=== PATIENT | female | born 1965 | race American Indian/Alaskan Native ===

== ENCOUNTER 2017-11-15 13:45 | Observation (INO) | payer BC ==
[2017-11-15] MEDS ORDERED: Pantoprazole 40 MG in Sodium Chloride 0.9% 100 ML IV STA (14:15)
[2017-11-15] MEDS ORDERED: Sodium Chloride 0.9% 500 ML IV ONE (14:16)
--- NOTE | 2017-11-15 14:20 | ED PDOC ---
Arrival/HPI - General Chief Complaint: Abdominal Pain Time Seen by Provider: 11/15/17 13:59 Historian: Patient, Parent - History of Present Illness Time/Duration: Other (yesterday) Symptom Onset: Gradual Symptom Course: Worsening Quality: Aching Severity Level: Severe Activities at Onset: Rest Associated Symptoms (Text): 11/15/17 14:17 Patient complains of generalized abdominal pain with radiation into her back along with nausea vomiting and constipation since yesterday. No genitourinary symptoms. Patient had a similar episode approximately 15 years ago. No fever or chills. No chest pain palpitations or dyspnea. No injury or trauma. Past Medical History - Infectious Disease Hx of Infectious Diseases: None - Reproductive Menopause: No - Cardiac Hx Cardiac Disorders: Yes Hx Hypertension: Yes - Endocrine/Metabolic Hx Diabetes Mellitus Type 2: Yes Hx Hypothyroidism: Yes - Hematological/Oncological Other/Comment: breast ca - Integumentary Hx Dermatological Disorder: No - Psychiatric Hx Substance Use: No - Surgical History Other/Comment: rt breadt lumpectomy - Anesthesia Hx Anesthesia: Yes Hx Anesthesia Reactions: No Family/Social History - Physician Review Nursing Documentation Reviewed: Yes Family/Social History: Unknown Family HX Smoking Status: Heavy Smoker > 10 Cigarettes Daily Hx Alcohol Use: Yes Frequency of alcohol use: Socially Hx Substance Use: No Allergies/Home Meds Allergies/Adverse Reactions: Allergies acetaminophen [From Percocet] Allergy (Verified 11/15/17 14:15) RASH banana Allergy (Verified 11/15/17 14:15) RASH oxycodone [From Percocet] Allergy (Verified 11/15/17 14:15) RASH tomato Allergy (Verified 11/15/17 14:15) RASH Review of Systems - Physician Review All systems were reviewed & negative as marked: Yes - Review of Systems Constitutional: absent: Fatigue, Fevers Respiratory: absent: SOB, Cough, Sputum, Wheezing Cardiovascular: absent: Chest Pain, Palpitations, Syncope Gastrointestinal: Abdominal Pain, Constipation, Nausea, Vomiting. absent: Diarrhea, Anorexia Genitourinary Female: absent: Dysuria, Frequency, Hematuria Neurological: absent: Headache, Dizziness, Focal Weakness Physical Exam Vital Signs Temp Pulse Resp BP Pulse Ox 11/15/17 16:23 180/98 H 11/15/17 15:35 179/104 H 11/15/17 15:14 78 18 179/104 H 98 11/15/17 14:08 98.7 F 95 H 18 185/109 H 99 Temperature: Afebrile Blood Pressure: Hypertensive Pulse: Regular Respiratory Rate: Normal Appearance: Positive for: Well-Appearing, Non-Toxic, Uncomfortable, Other (obese ) Pain Distress: Moderate Mental Status: Positive for: Alert and Oriented X 3 - Systems Exam Head: Present: Atraumatic, Normocephalic Pupils: Present: PERRL Extroacular Muscles: Present: EOMI Conjunctiva: Present: Normal Mouth: Present: Moist Mucous Membranes Pharnyx: No: ERYTHEMA, EXUDATE, TONSILS ENLARGED Neck: Present: Normal Range of Motion Respiratory/Chest: Present: Clear to Auscultation, Good Air Exchange, Decreased Breath Sounds. No: Respiratory Distress, Accessory Muscle Use Cardiovascular: Present: Regular Rate and Rhythm, Normal S1, S2. No: Murmurs Abdomen: Present: Tenderness (generalized abdominal tenderness with no guarding or rebound, surgical scars), Normal Bowel Sounds, Scars. No: Distention, Peritoneal Signs, Rebound, Guarding Back: Present: Normal Inspection. No: CVA Tenderness, Midline Tenderness, Paraspinal Tenderness Upper Extremity: Present: Normal Inspection. No: Cyanosis, Edema Lower Extremity: Present: Normal Inspection. No: Edema Neurological: Present: GCS=15, CN II-XII Intact, Speech Normal, Motor Func Grossly Intact Skin: Present: Warm, Dry, Normal Color. No: Rashes Psychiatric: Present: Alert, Oriented x 3, Normal Insight, Normal Concentration Medical Decision Making ED Course and Treatment: 11/15/17 14:10 Impression: 52 year old female presents complaining of abdominal pain radiating to her back associated with nausea, vomiting, and constipation since yesterday. Plan: -- CT Abd & pelvis w/o PO or IV Contrast -- EKG -- Labs -- Chest X-ray -- Protonix Inj, IV Fluids, Toradol, Zofran Inj -- Urinalysis -- Reassess and disposition Progress Notes: 11/15/17 15:30 EKG shows normal sinus rhythm rate approximately 80 with LVH and nonspecific T waves and no acute ST or T-wave changes 11/15/17 16:14 Nausea has improved, but her pain is no better. Morphine ordered. - Lab Interpretations Lab Results: 11/15/17 15:14 11/15/17 15:49 Lab Results 11/15/17 15:54: Urine Color Yellow, Urine Appearance Clear, Urine pH 6.0, Ur Specific [place] 1.010, Urine Protein Negative, Urine Glucose (UA) Negative, Urine Ketones Negative, Urine Blood Negative, Urine Nitrate Negative, Urine Bilirubin Negative, Urine Urobilinogen 0.2, Ur Leukocyte Esterase Negative 11/15/17 15:49: Sodium 141, Potassium 4.2, Chloride 107, Carbon Dioxide 26, Anion Gap 11, BUN 8, Creatinine 0.6 L, Est GFR ( Amer) > 60, Est GFR (Non -Af Amer) > 60, Random Glucose 112 H, Calcium 9.6, Total Bilirubin 0.4, AST 21, ALT 19, Alkaline Phosphatase 99, Lactate Dehydrogenase 505, Total Creatine Kinase 128, Troponin I < 0.01, Total Protein 7.2, Albumin 4.1, Globulin 3.1, Albumin/Globulin Ratio 1.3, Amylase 103, Lipase 100 11/15/17 15:14: PT 11.5, INR 1.01, APTT 35.3 11/15/17 15:14: WBC 11.9 H, RBC 4.61, Hgb 13.5, Hct 41.3, MCV 89.6, MCH 29.3, MCHC 32.7, RDW 14.4, Plt Count 312, MPV 10.6, Gran % 63.2, Lymph % (Auto) 30.1, [place] % (Auto) 6.0, Eos % (Auto) 0.5 L, Baso % (Auto) 0.2, Gran # 7.52 H, Lymph # (Auto) 3.6 H, [place] # (Auto) 0.7 H, Eos # (Auto) 0.1, Baso # (Auto) 0.02 I have reviewed the lab results: Yes - RAD Interpretation Radiology Orders: 11/15/17 14:15 ABD & PELVIS W/O PO OR IV CONT [CT] Stat CHEST ONE VIEW [RAD] Stat CT scan of the abdomen and pelvis is read by the radiologist shows no acute findings. Chest one view as read by the radiologist shows no acute findings. Biomedical Equipment Specialist: Radiologist - EKG Interpretation Interpreted by ED Physician: Yes Type: 12 lead EKG - Medication Orders Current Medication Orders: Discontinued Medications Enalaprilat (Vasotec Iv) 2.5 mg IVP STAT STA Stop: 11/15/17 15:28 Last Admin: 11/15/17 15:35 Dose: 2.5 mg MAR Blood Pressure Document 11/15/17 15:35 LA (Rec: 11/15/17 15:35 LA [id number]) Blood Pressure Blood Pressure (100/60-150/90 mm Hg) 179/104 IVP Administration Document 11/15/17 15:35 LA (Rec: 11/15/17 15:35 LA [id number]) Charges for Administration # of IVP Administrations 1 Sodium Chloride (Sodium Chloride 0.9%) 500 mls @ 500 mls/hr IV ONCE ONE Stop: 11/15/17 15:15 Last Admin: 11/15/17 14:56 Dose: 500 mls/hr eMAR Start Stop Document 11/15/17 14:56 LA (Rec: 11/15/17 14:57 LA [id number]) Intravenous Solution Start Date 11/15/17 Start Time 14:56 End Date 11/15/17 End time 15:56 Total Infusion Time 60 Ketorolac Tromethamine (Toradol) 15 mg IVP STAT STA Stop: 11/15/17 14:16 Last Admin: 11/15/17 14:57 Dose: 15 mg MAR Pain Assessment Document 11/15/17 14:57 LA (Rec: 11/15/17 14:57 LA [id number]) Pain Reassessment Is this a pain reassessment? No Sleep Is patient sleeping during reassessment? No Presence of Pain Presence of Pain Yes Pain Scale Used Pain Scale Used Numeric Location Pain Location Body Site Abdomen Description Description Intermittent Intensity of Pain at present 5 Pain Behavior Guarding IVP Administration Document 11/15/17 14:57 LA (Rec: 11/15/17 14:57 LA [id number]) Charges for Administration # of IVP Administrations 1 Morphine Sulfate (Morphine) 4 mg IVP STAT STA Stop: 11/15/17 16:15 Last Admin: 11/15/17 16:37 Dose: 4 mg MAR Pain Assessment Document 11/15/17 16:37 LA (Rec: 11/15/17 16:38 LA [id number]) Pain Reassessment Is this a pain reassessment? No Sleep Is patient sleeping during reassessment? No Presence of Pain Presence of Pain Yes Pain Scale Used Pain Scale Used Numeric Location Pain Location Body Site Abdomen Description Description Intermittent Intensity of Pain at present 5 Pain Behavior Guarding IVP Administration Document 11/15/17 16:37 LA (Rec: 11/15/17 16:38 LA [id number]) Charges for Administration # of IVP Administrations 1 Ondansetron HCl (Zofran Inj) 4 mg IVP STAT STA Stop: 11/15/17 14:16 Last Admin: 11/15/17 14:57 Dose: 4 mg IVP Administration Document 11/15/17 14:57 LA (Rec: 11/15/17 14:57 [id number] Charges for Administration # of IVP Administrations 1 Pantoprazole Sodium (Protonix Inj) 40 mg IVP ONCE ONE Stop: 11/15/17 14:31 Last Admin: 11/15/17 14:57 Dose: 40 mg IVP Administration Document 11/15/17 14:57 LA (Rec: 11/15/17 14:57 [id number] Charges for Administration # of IVP Administrations 1 - Scribe Statement The provider has reviewed the documentation as recorded by the Lokesh Velazquez Provider Scribe Attestation: All medical record entries made by the Lokesh were at my direction and personally dictated by me. I have reviewed the chart and agree that the record accurately reflects my personal performance of the history, physical exam, medical decision making, and the department course for this patient. I have also personally directed, reviewed, and agree with the discharge instructions and disposition. Disposition/Present on Arrival - Present on Arrival Any Indicators Present on Arrival: No History of DVT/PE: No History of Uncontrolled Diabetes: No Urinary Catheter: No History of Decub. Ulcer: No History Surgical Site Infection Following: None - Disposition Have Diagnosis and Disposition been Completed?: Yes Diagnosis: Abdominal pain, Hypertension, Nausea and vomiting Disposition: HOSPITALIZED Disposition Time: 16:57 Patient Plan: Observation, Telemetry Condition: GOOD Forms: [employer] ([place])
[2017-11-15 15:21] LABS: BASO # 0.02 K/mm3 (0.0-2.0); BASO % 0.2 % (0.0-3.0); EOS # 0.1 (0.0-0.7); EOS % 0.5 % (1.5-5.0); GRAN # 7.52 (1.4-6.5); GRAN % 63.2 % (50.0-68.0); HEMOGLOBIN 13.5 g/dL (12.0-16.0); LYMPH # 3.6 (1.2-3.4); LYMPH % 30.1 % (22.0-35.0); MEAN CELL VOLUME 89.6 fl (80.0-105.0); MEAN CORPUSCULAR HEMOGLOBIN 29.3 pg (25.0-35.0); MEAN CORPUSCULAR HGB CONC 32.7 g/dl (31.0-37.0); MEAN PLATELET VOLUME 10.6 fl (7.0-11.0); MONO # 0.7 (0.1-0.6); RBC 4.61 10^6/uL (3.5-6.1); RED CELL DISTRIBUTION WIDTH 14.4 % (11.5-14.5); WHITE BLOOD COUNT 11.9 10^3/ul (4.5-11.0)
[2017-11-15] MEDS ORDERED: EnalaprilAT 1.25 mg/ml Inj IVP STA (15:27)
[2017-11-15 15:32] LABS: INR 1.01; PARTIAL THROMBOPLASTIN TIME 35.3 Seconds (25.1-36.5); PROTHROMBIN TIME 11.5 SECONDS (9.4-12.5)
[2017-11-15 16:10] LABS: ALB/GLOB RATIO 1.3 (1.1-1.8); ALBUMIN 4.1 g/dL (3.0-4.8); ALT/SGPT 19 U/L (7-56); AMYLASE 103 U/L (35-125); AST/SGOT 21 U/L (14-36); BLOOD UREA NITROGEN 8 mg/dL (7-21); CALCIUM 9.6 mg/dL (8.4-10.5); GFR NON-AFRICAN AMERICAN > 60; LIPASE 100 U/L (23-300)
[2017-11-15] MEDS ORDERED: Morphine 4 mg/ml ISec IVP STA (16:14)
--- NOTE | 2017-11-15 16:17 | CT ---
Date of service: 11/15/2017 PROCEDURE: CT Abdomen and Pelvis without intravenous contrast HISTORY: pain COMPARISON: None. TECHNIQUE: Without contrast.. Contrast dose: Radiation dose: Total exam DLP = 1072 mGy-cm. This CT exam was performed using one or more of the following dose reduction techniques: Automated exposure control, adjustment of the mA and/or kV according to patient size, and/or use of iterative reconstruction technique. FINDINGS: LOWER THORAX: Unremarkable. LIVER: Unremarkable. No gross lesion or ductal dilatation. GALLBLADDER AND BILE DUCTS: Unremarkable. PANCREAS: Unremarkable. No gross lesion or ductal dilatation. SPLEEN: Unremarkable. ADRENALS: Unremarkable. No mass. KIDNEYS AND URETERS: Unremarkable. No hydronephrosis. No solid mass. VASCULATURE: Unremarkable. No aortic aneurysm. BOWEL: Unremarkable. No obstruction. No gross mural thickening. APPENDIX: Unremarkable. Normal appendix. PERITONEUM: Unremarkable. No free fluid. No free air. LYMPH NODES: Unremarkable. No enlarged lymph nodes. BLADDER: Unremarkable. REPRODUCTIVE: Unremarkable. BONES: No acute fracture. OTHER FINDINGS: None. IMPRESSION: No acute intra-abdominal findings
[2017-11-15 16:20] LABS: TROPONIN I < 0.01 ng/mL
[2017-11-15 16:23] LABS: URINE BILIRUBIN NEGATIVE (NEGATIVE); URINE BLOOD NEGATIVE (NEGATIVE); URINE GLUCOSE (UA) NEGATIVE (NEGATIVE); URINE LEUKOCYTE ESTERASE NEGATIVE Leu/uL (NEGATIVE); URINE PROTEIN NEGATIVE mg/dL (<30 mg/dL); URINE UROBILINOGEN 0.2 E.U./dL (<1 E.U./dL)
[2017-11-15 16:24] LABS: URINE APPEARANCE CLEAR (CLEAR); URINE COLOR YELLOW (YELLOW)
--- NOTE | 2017-11-15 16:28 | RAD ---
Date of service: 11/15/2017 PROCEDURE: CHEST RADIOGRAPH, 1 VIEW HISTORY: ap COMPARISON: None available. FINDINGS: LUNGS: Clear. PLEURA: No pneumothorax or pleural fluid seen. CARDIOVASCULAR: Normal. OSSEOUS STRUCTURES: No significant abnormalities. VISUALIZED UPPER ABDOMEN: Normal. OTHER FINDINGS: None. IMPRESSION: No active disease.
--- NOTE | 2017-11-15 17:49 | CP.PCM.HP ---
<Joe Ramos - Last Filed: 11/15/17 18:05> History of Present Illness - History of Present Illness History of Present Illness: Joe Ramos DO, PGY-2: HPI for Dr. Qing Keith 52 year old female with a past medical history of hypertension, DM II, bowel resection in 2002, breast cancer treated with lumpectomy and radiation, who presents with one day of upper abdominal pain, nausea, and vomiting after eating a [place] meal yesterday for lunch. The meal included ox tails and rice. No one else in the group got sick bedsides her. She reports initially feeling funny at around 5 pm yesterday, then vomiting starting at 01:00 AM today for a total of 7 times in the interim. She scales the pain as 7/10 in severity, described as contraction like with associated bloating sensation. She reports inability to tolerate solid foods, but able to drink liquids. She reports being constipated since Sunday. She also denies passing flatus. She denies any headache, visual changes, fever, chills, chest pain, dysuria, diarrhea, recent sick contacts, or travel. Otherwise, 12 point review of system in negative. In the ED she was given 1/2 L of fluid, zofran, morphine, toradol , protonix, and Vasotec (for elevated blood pressure). At the time of my examination she reports her abdominal pain has subsided to a 3/10 in severity, but reports still feeling nausea. 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 history of smoking, alcohol socially, denies illicit drug use Present on Admission - Present on Admission Any Indicators Present on Admission: No Review of Systems - Review of Systems All systems: reviewed and no additional remarkable complaints except (as per HPI ) Past Patient History - Infectious Disease Hx of Infectious Diseases: None - Past Social History Smoking Status: Heavy Smoker > 10 Cigarettes Daily - CARDIAC Hx Cardiac Disorders: Yes Hx Hypertension: Yes - ENDOCRINE/METABOLIC Hx Diabetes Mellitus Type 2: Yes Hx Hypothyroidism: Yes - HEMATOLOGICAL/ONCOLOGICAL Other/Comment: breast ca - INTEGUMENTARY Hx Dermatological Problems: No - PSYCHIATRIC Hx Substance Use: No - SURGICAL HISTORY Other/Comment: rt breadt lumpectomy - ANESTHESIA Hx Anesthesia: Yes Hx Anesthesia Reactions: No Meds Allergies/Adverse Reactions: Allergies Allergy/AdvReac Type Severity Reaction Status Date / Time acetaminophen [From Percocet] Allergy RASH Verified 11/15/17 14:15 banana Allergy RASH Verified 11/15/17 14:15 oxycodone [From Percocet] Allergy RASH Verified 11/15/17 14:15 tomato Allergy RASH Verified 11/15/17 14:15 Physical Exam - Constitutional Appears: Non-toxic, No Acute Distress - Head Exam Head Exam: ATRAUMATIC, NORMOCEPHALIC - Eye Exam Eye Exam: EOMI, Normal appearance - ENT Exam ENT Exam: Mucous Membranes Dry - Neck Exam Neck exam: Positive for: Normal Inspection - Respiratory Exam Respiratory Exam: Clear to Auscultation Bilateral, NORMAL BREATHING PATTERN. absent: Accessory Muscle Use - Cardiovascular Exam Cardiovascular Exam: RRR, +S1, +S2 - GI/Abdominal Exam GI & Abdominal Exam: Normal Bowel Sounds. absent: Distended, Guarding, Rebound , Tenderness - Extremities Exam Extremities exam: Positive for: normal inspection. Negative for: calf tenderness - Back Exam Additional comments: cyst in thoracolumbar intersection, midline - Neurological Exam Neurological exam: Alert, CN II-XII Intact, Oriented x3 - Psychiatric Exam Psychiatric exam: Normal Affect, Normal Mood - Skin Skin Exam: Dry, Intact, Normal Color, Warm Results - Vital Signs Recent Vital Signs: Last Vital Signs Temp 98.7 F 11/15/17 14:08 Pulse 78 11/15/17 15:14 Resp 18 11/15/17 15:14 BP 180/98 H 11/15/17 16:23 Pulse Ox 98 11/15/17 15:14 - Labs Result Diagrams: 11/15/17 15:14 11/15/17 15:49 Labs: Laboratory Results - last 24 hr 11/15/17 11/15/17 11/15/17 15:14 15:14 15:49 WBC 11.9 H RBC 4.61 Hgb 13.5 Hct 41.3 MCV 89.6 MCH 29.3 MCHC 32.7 RDW 14.4 Plt Count 312 MPV 10.6 Gran % 63.2 Lymph % (Auto) 30.1 [place] % (Auto) 6.0 Eos % (Auto) 0.5 L Baso % (Auto) 0.2 Gran # 7.52 H Lymph # (Auto) 3.6 H [place] # (Auto) 0.7 H Eos # (Auto) 0.1 Baso # (Auto) 0.02 PT 11.5 INR 1.01 APTT 35.3 Sodium 141 Potassium 4.2 Chloride 107 Carbon Dioxide 26 Anion Gap 11 BUN 8 Creatinine 0.6 L Est GFR ( Amer) > 60 Est GFR (Non-Af Amer) > 60 Random Glucose 112 H Calcium 9.6 Total Bilirubin 0.4 AST 21 ALT 19 Alkaline Phosphatase 99 Lactate Dehydrogenase 505 Total Creatine Kinase 128 Troponin I < 0.01 Total Protein 7.2 Albumin 4.1 Globulin 3.1 Albumin/Globulin Ratio 1.3 Amylase 103 Lipase 100 Urine Color Urine Appearance Urine pH Ur Specific [place] Urine Protein Urine Glucose (UA) Urine Ketones Urine Blood Urine Nitrate Urine Bilirubin Urine Urobilinogen Ur Leukocyte Esterase 11/15/17 15:54 WBC RBC Hgb Hct MCV MCH MCHC RDW Plt Count MPV Gran % Lymph % (Auto) [place] % (Auto) Eos % (Auto) Baso % (Auto) Gran # Lymph # (Auto) [place] # (Auto) Eos # (Auto) Baso # (Auto) PT INR APTT Sodium Potassium Chloride Carbon Dioxide Anion Gap BUN Creatinine Est GFR ( Amer) Est GFR (Non-Af Amer) Random Glucose Calcium Total Bilirubin AST ALT Alkaline Phosphatase Lactate Dehydrogenase Total Creatine Kinase Troponin I Total Protein Albumin Globulin Albumin/Globulin Ratio Amylase Lipase Urine Color Yellow Urine Appearance Clear Urine pH 6.0 Ur Specific [place] 1.010 Urine Protein Negative Urine Glucose (UA) Negative Urine Ketones Negative Urine Blood Negative Urine Nitrate Negative Urine Bilirubin Negative Urine Urobilinogen 0.2 Ur Leukocyte Esterase Negative - EKG Data EKG shows normal: Sinus rhythm Rate: Normal Assessment & Plan - Assessment and Plan (Free Text) Assessment: 52 year old female with a past medical history of hypertension, DM II, breast cancer, abdominal surgeries who presents with one day of intractable nausea, vomiting, and upper abdominal pain. CT of the abdomen and pelvis was unremarkable. Patient was found to have elevated blood pressure in the ED. Plan: 1) Abdominal pain secondary to food poisoning or gastroenteritis - CT A/P unremarkable - Zofran 4 mg q6h PRN for nausea - Toradol 15 mg q6h PRN for analgesia - Dulcolax suppository for constipation - Clear liquid diet, will advance as tolerated 2) Hypertensive urgency - Blood pressure 200/100 + in the ED - 25 mg of IV Hydralazine ordered - Will monitor closely - Restart home amlodipine 10 mg and Lisinopril 30 mg starting tomorrow 3) DM II - HgbA1c ordered - insulin lispro (low) with FSBG ACHS - Holding home Janumet 50-500 BID 4) Thyroid issue - TSH and Free T4 ordered 5) DVT/GI prophylaxis - SCD and Pepcid 20 mg BID Case was reviewed and discussed with attending physician, Dr. Qing Keith - Date & Time Date: 11/15/17 Time: 18:07 <Qing Keith R - Last Filed: 11/15/17 18:58> Results - Vital Signs Recent Vital Signs: Last Vital Signs Temp 98.7 F 11/15/17 14:08 Pulse 83 11/15/17 18:25 Resp 18 11/15/17 15:14 BP 186/99 H 11/15/17 18:25 Pulse Ox 98 11/15/17 15:14 - Labs Result Diagrams: 11/15/17 15:14 11/15/17 15:49 Attending/Attestation - Attestation I have personally seen and examined this patient.: Yes I have fully participated in the care of the patient.: Yes I have reviewed all pertinent clinical information: Yes Notes (Text): Patient seen and examined by me at 5PM with resident. Case including HPI, physical exam, and assessment and plan discussed with resident. Agree with above with following additions/corrections. CC: Abdominal pain, nausea, and vomiting. Patient is a 52-year-old female past medical history significant for hypertension, type 2 diabetes, bowel resection in 2002, and breast cancer treated with lumpectomy and radiation that presents to the emergency room with abdominal pain, nausea, and vomiting. Patient states that she was at lunch yesterday and had oxtail. States she was at work in the evening and started to feel "funny" around 5 PM. She started to have abdominal pain and bloating. Overnight she had nausea and vomiting 7 episodes. She states that the emesis was just water. Patient states that this morning she ate 2 sausages and was unable to keep this down and also threw up. She was able to keep her medications down and was able to tolerate some water. Patient states that the abdominal pain feels like "contractions" and it comes and goes. It does not radiate. She tried ibuprofen at home with no relief. No associated diarrhea. She states she has been constipated and unable to have a bowel movement since 12/20. She states that hse does check her bloos pressure at home and it is usually "good." Patient states she can not tolerate narcotics for pain as it makes her feel "sick." No chest pain or shortness of breath. No headaches or dizziness. No fevers or chills. No dysuria. No neck pain or back pain. 12 point review of systems reviewed by me. Please see HPI. All other systems are negative. Home medications reviewed with patient. Physical exam: General: Awake and alert lying in bed in no acute distress HEENT: Normocephalic atraumatic. Pupils equal reactive. No scleral icterus. Oropharynx is pink and moist. No pharyngeal erythema or exudate appreciated. Neck is supple. Hearing grossly intact. Ears and nose externally unremarkable Cardiovascular: Normal rhythm. Normal S1, S2. No murmurs, rubs, or gallops appreciated Pulmonary: Normal respiratory effort. No rhonchi, rales or wheezing appreciated. Gastrointestinal: Soft, nondistended. Obsese abdomen. Positive generalized tenderness. Positive bowel sounds all 4 quadrants, no guarding. Unable to test for oganomegaly secondary to obese abdomen. Musculoskeletal: Moves all extremities, no calf tenderness. No edema. No CVA tenderness. Central nervous system: AAOx3. CN2-12 grossly intact Dermatologic: Skin warm and dry. Assessment and plan: Patient is a 52-year-old female past medical history significant for hypertension, type 2 diabetes, bowel resection in 2002, and breast cancer treated with lumpectomy and radiation that presents to the emergency room with abdominal pain, nausea, and vomiting. 1. Abdominal pain. Nausea and Vomiting. Likely with viral gastroenteritis. Patient afebrile. Placed on Zofran. Clear liquid diet. Advance as tolerated. Placed on toradol for pain. CT abd/pelvis per radiologist shows no acute intra- abdominal findings. IV fluids held secondary to hypertensive urgency. 2. Hypertensive urgency. May be seconadary to pain. Patient given vasotec in ED. Will give hydralazine. Continue home lisinopril and norvasc. 3. Constipation. Will give dulcolax suppository. Monitor for bowel movement. 4. DM2. Place on insulin sliding. Monitor accuchecks. 5. Leukocytosis. Likely secondary to #1. Monitor for now. 6. Tobacco abuse. Patient counseled on cessation. 7. GI/DVT prophylaxis. Pepcid and SCDs with ambulation. Case was discussed in detail with the patient regarding current diagnosis and treatment plan. All questions were answered.
--- NOTE | 2017-11-15 18:28 | CARD ---
APPROVED REPORT Date of service: 11/15/2017 EKG Measurement Heart [id number] <Conclusion> Normal sinus rhythm Possible Left atrial enlargement Left ventricular hypertrophy Nonspecific T wave abnormality Abnormal ECG
[2017-11-15 20:57] LABS: HDL CHOLESTEROL 49 mg/dL (29-60)
[2017-11-15 21:07] LABS: LDL CHOLESTEROL 162 mg/dL (0-129)
[2017-11-15 21:15] LABS: FREE T4 0.96 ng/dL (0.78-2.19)
[2017-11-15] MEDS: Insulin Lispro (humaLOG) LOW Coverage SC SCH (22:25)
[2017-11-15 23:15] VITALS: BMI 32.5
[2017-11-16 07:54] LABS: BASO # 0.01 K/mm3 (0.0-2.0); BASO % 0.1 % (0.0-3.0); EOS % 0.2 % (1.5-5.0); GRAN # 7.99 (1.4-6.5); GRAN % 76.5 % (50.0-68.0); HEMOGLOBIN 13.4 g/dL (12.0-16.0); LYMPH # 1.7 (1.2-3.4); LYMPH % 16.3 % (22.0-35.0); MEAN CORPUSCULAR HEMOGLOBIN 29.3 pg (25.0-35.0); MEAN CORPUSCULAR HGB CONC 33.3 g/dl (31.0-37.0); MEAN PLATELET VOLUME 9.9 fl (7.0-11.0); MONO # 0.7 (0.1-0.6); MONO % 6.9 % (1.0-6.0); RBC 4.57 10^6/uL (3.5-6.1); RED CELL DISTRIBUTION WIDTH 14.5 % (11.5-14.5); WHITE BLOOD COUNT 10.4 10^3/ul (4.5-11.0)
[2017-11-16 08:06] LABS: ALB/GLOB RATIO 1.4 (1.1-1.8); ALBUMIN 4.3 g/dL (3.0-4.8); ALT/SGPT 23 U/L (7-56); AST/SGOT 18 U/L (14-36); BLOOD UREA NITROGEN 7 mg/dL (7-21); CALCIUM 9.5 mg/dL (8.4-10.5); GFR NON-AFRICAN AMERICAN > 60
[2017-11-16] MEDS: Insulin Lispro (humaLOG) LOW Coverage SC SCH ×4 (08:43→22:22)
--- NOTE | 2017-11-16 10:58 | RAD ---
Date of service: 11/16/2017 HISTORY: constipation COMPARISON: No prior. FINDINGS: BOWEL: Normal. No obstruction. No free air. BONES: Normal. OTHER FINDINGS: None. IMPRESSION: No active disease.
--- NOTE | 2017-11-16 16:42 | CP.PCM.PN ---
<Yoselin Vazquez - Last Filed: 11/16/17 16:38> Subjective - Date & Time of Evaluation Date of Evaluation: 11/16/17 Time of Evaluation: 09:30 - Subjective Subjective: PGY-1 Yoselin Vazquez D.O. medicine progress note for Dr. Keith's service: Patient is seen and examined this morning. She is continuing to have vomiting and is not able to tolerate PO intake. She feels like she needs to move her bowels, but is unable to have a bowel movement. She had 1 episode of watery diarrhea last night. Her abdominal pain has improved. She has had multiple abdominal surgeries- , hysterectomy, R oophorectomy, and surgery for volvulus. Objective - Vital Signs/Intake and Output Vital Signs (last 24 hours): Temp Pulse Resp BP Pulse Ox 98.1 F 62 18 163/74 H 100 11/16/17 12:00 11/16/17 12:00 11/16/17 12:00 11/16/17 12:00 11/16/17 00:01 - Medications Medications: Current Medications Amlodipine Besylate (Norvasc) 10 mg PO DAILY [facility] Last Admin: 11/16/17 09:27 Dose: 10 mg Atorvastatin Calcium (Lipitor) 10 mg PO DIN [facility] Famotidine (Pepcid) 20 mg PO 1000,2200 [facility] Last Admin: 11/16/17 09:26 Dose: 20 mg Hydralazine HCl (Apresoline) 10 mg IVP Q6 PRN PRN Reason: sbp >160 OR dbp > 100 Insulin Human Lispro (Humalog Low) 0 units SC ACHS [facility] PRN Reason: Protocol Last Admin: 11/16/17 11:38 Dose: Not Given Ketorolac Tromethamine (Toradol) 15 mg IVP Q6H PRN PRN Reason: Pain, severe (8-10) Last Admin: 11/16/17 01:46 Dose: 15 mg Lisinopril (Zestril) 30 mg PO DAILY [facility] Last Admin: 11/16/17 09:27 Dose: 30 mg Ondansetron HCl (Zofran Inj) 4 mg IVP Q6H PRN PRN Reason: Nausea/Vomiting Last Admin: 11/16/17 01:49 Dose: 4 mg - Labs Labs: PT 11.5 SECONDS (9.4-12.5) 11/15/17 15:14 INR 1.01 11/15/17 15:14 APTT 35.3 Seconds (25.1-36.5) 11/15/17 15:14 - Constitutional Appears: Non-toxic, No Acute Distress - Head Exam Head Exam: ATRAUMATIC, NORMAL INSPECTION, NORMOCEPHALIC - Eye Exam Eye Exam: EOMI, Normal appearance, PERRL - ENT Exam ENT Exam: Mucous Membranes Moist, Normal Exam - Neck Exam Neck Exam: Normal Inspection - Respiratory Exam Respiratory Exam: Clear to Ausculation Bilateral, NORMAL BREATHING PATTERN - Cardiovascular Exam Cardiovascular Exam: REGULAR RHYTHM, +S1 - GI/Abdominal Exam GI & Abdominal Exam: Soft, Normal Bowel Sounds. absent: Tenderness - Rectal Exam Rectal Exam: Deferred - Extremities Exam Extremities Exam: Normal Inspection - Back Exam Back Exam: NORMAL INSPECTION - Neurological Exam Neurological Exam: Alert, Awake, CN II-XII Intact, Oriented x3 Neuro motor strength exam: Left Upper Extremity: 5, Right Upper Extremity: 5, Left Lower Extremity: 5, Right Lower Extremity: 5 - Psychiatric Exam Psychiatric exam: Normal Affect, Normal Mood - Skin Skin Exam: Dry, Intact, Normal Color, Warm Assessment and Plan - Assessment and Plan (Free Text) Assessment: Patient is a 52 yo female with a history of multiple abdominal surgeries, breast cancer, HTN, and T2DM who presented with vomiting and abdominal pain. She states she ate at a [employer] restaurant. now she is unable to have a BM. Plan: Abdominal pain and vomiting- suspect secondary to food poisoning or gastroenteritis - CT A/P: unremarkable - Abdominal XR: negative - Amylase 103, lipase 100 - Zofran 4 mg q6h PRN for nausea - Toradol 15 mg q6h PRN for analgesia - Dulcolax suppository for constipation - Colace 100 mg PO daily - Miralax 17 g PO daily - Clear liquid diet, will advance as tolerated - GI consulted (Guan) Hypertensive urgency, improving (160s/90s) - BP 185/109 on admission - 25 mg IV Hydralazine x1 - Norvasc 10 mg PO daily - Lisinopril 30 mg PO daily - Hydralazine 10 mg IV q6hrs PRN SBP >160, DBP >100 Hyperlipidemia - TG 186, choles 257, LDL 162, HDL 49 - Start Lipitor 10 mg PO daily T2DM, chronic (BG 100s) - F/u HgbA1c - Insulin lispro Sliding scale ACHS - Holding home Janumet 50-500 BID Thyroid dysfunction - TSH <0.02 - Free T4 0.96 IVF: not indicated Diet: clear liquid- advance as tolerated GI ppx: Pepcid 20 mg PO BID VTE ppx: SCDs, ambulatory Code status: full code Case was discussed with attending, Dr. Keith. <Qing Keith - Last Filed: 11/17/17 16:52> Objective - Vital Signs/Intake and Output Vital Signs (last 24 hours): Temp Pulse Resp BP Pulse Ox 98.1 F 65 20 151/89 H 100 11/17/17 12:00 11/17/17 12:00 11/17/17 12:00 11/17/17 12:00 11/17/17 06:00 Intake and Output: 11/17/17 11/17/17 06:59 18:59 Intake Total 640 Balance 640 - Labs Labs: 11/17/17 06:00 11/17/17 06:00 PT 11.5 SECONDS (9.4-12.5) 11/15/17 15:14 INR 1.01 11/15/17 15:14 APTT 35.3 Seconds (25.1-36.5) 11/15/17 15:14 Attending/Attestation - Attestation I have personally seen and examined this patient.: Yes I have fully participated in the care of the patient.: Yes I have reviewed all pertinent clinical information, including history, physical exam and plan: Yes Notes (Text): Patient seen and examined by me at 9:55AM with resident 11/16/17. Case including HPI, physical exam, and assessment and plan discussed with resident. Agree with above with following additions/corrections. Patient is a 52-year-old female past medical history significant for hypertension, type 2 diabetes, bowel resection in 2002, and breast cancer treated with lumpectomy and radiation that presents to the emergency room with abdominal pain, nausea, and vomiting. Patient states she is feeling ok. Still with abdominal pain. States she feels like she needs to have a bowel movement but has been unable to go. Still with some nausea. Patient has been able to tolerate a little liquids. No chest pain or shortness of breath. No headaches or dizziness. No fevers or chills. No dysuria. Physical exam: General: Awake and alert lying in bed in no acute distress HEENT: Normocephalic atraumatic. Pupils equal reactive. No scleral icterus. Oropharynx is pink and moist. No pharyngeal erythema or exudate appreciated. Neck is supple. Cardiovascular: Normal rhythm. Normal S1, S2. No murmurs, rubs, or gallops appreciated Pulmonary: Normal respiratory effort. No rhonchi, rales or wheezing appreciated. Gastrointestinal: Soft, nondistended. Obsese abdomen. Positive generalized tenderness. Positive bowel sounds all 4 quadrants, no guarding. Musculoskeletal: Moves all extremities, no calf tenderness. No edema. No CVA tenderness. Central nervous system: AAOx3. CN2-12 grossly intact Dermatologic: Skin warm and dry. Assessment and plan: Patient is a 52-year-old female past medical history significant for hypertension, type 2 diabetes, bowel resection in 2002, and breast cancer treated with lumpectomy and radiation that presents to the emergency room with abdominal pain, nausea, and vomiting. 1. Abdominal pain. Nausea and Vomiting. Improved. May be secondary to hypertensive urgency vs constipation vs food poisoning. Continue with liquid diet. Will consult GI, follow up recommendations.. Patient afebrile. Continue on toradol for pain. CT abd/pelvis per radiologist shows no acute intra- abdominal findings. IV fluids held secondary to hypertensive urgency. 2. Hypertensive urgency. Resolved. May be seconadary to pain. Continue home lisinopril and norvasc. 3. Constipation. Will get abdominal xray. Will give colace and miralax. Monitor for bowel movement. 4. DM2. Continue insulin sliding. Continue to monitor accuchecks. 5. Leukocytosis. Likely secondary to #1. Resolved. Continue to monitor. 6. Tobacco abuse. Patient counseled on cessation. 7. Abnormal TSH. Normal Free T4. Patient advised to follow up with PMD for repeat thyroid function testing when acute illness has resolved. 8. GI/DVT prophylaxis. Pepcid and SCDs with ambulation. Case was discussed in detail with the patient regarding current diagnosis and treatment plan. All questions were answered.
[2017-11-16] MEDS: POLYETHYLENE GLYCOL 3350 17 GM/Dose PACKET PO SCH (17:39)
[2017-11-17 06:18] VITALS: O2SAT 100
[2017-11-17 07:20] LABS: BASO # 0.01 K/mm3 (0.0-2.0); BASO % 0.1 % (0.0-3.0); EOS # 0.1 (0.0-0.7); EOS % 0.8 % (1.5-5.0); GRAN # 6.13 (1.4-6.5); GRAN % 65.8 % (50.0-68.0); HEMOGLOBIN 13.9 g/dL (12.0-16.0); LYMPH # 2.3 (1.2-3.4); LYMPH % 25.1 % (22.0-35.0); MEAN CELL VOLUME 89.3 fl (80.0-105.0); MEAN CORPUSCULAR HEMOGLOBIN 29.3 pg (25.0-35.0); MEAN CORPUSCULAR HGB CONC 32.8 g/dl (31.0-37.0); MEAN PLATELET VOLUME 10.2 fl (7.0-11.0); MONO # 0.8 (0.1-0.6); MONO % 8.2 % (1.0-6.0); RBC 4.75 10^6/uL (3.5-6.1); RED CELL DISTRIBUTION WIDTH 14.6 % (11.5-14.5); WHITE BLOOD COUNT 9.3 10^3/ul (4.5-11.0)
[2017-11-17 07:49] LABS: ALB/GLOB RATIO 1.4 (1.1-1.8); ALBUMIN 4.4 g/dL (3.0-4.8); ALT/SGPT 21 U/L (7-56); AST/SGOT 20 U/L (14-36); BLOOD UREA NITROGEN 8 mg/dL (7-21); CALCIUM 9.5 mg/dL (8.4-10.5); GFR NON-AFRICAN AMERICAN > 60
[2017-11-17] MEDS: Insulin Lispro (humaLOG) LOW Coverage SC SCH ×2 (08:11→12:16)
--- NOTE | 2017-11-17 08:52 | CP.PCM.CON ---
<Frank Bassett - Last Filed: 11/17/17 10:11> History of Present Illness - History of Present Illness History of Present Illness: GI Fellow PGY4, consult note. Nikki Tineo is a 52F with extensive abdominal surgical history and DM presenting with acute nausea/vomiting and abdominal pain. She reports she last felt well Sunday up until she ate [place] food (Ox tail, rice). She had several episodes of non-bloody vomiting after this which was followed by abdominal pain. She is still having nausea, feeling bloated. Last vomited yesterday. She reports not passing flatus or having a BM while shes been in the hospital. Several abdominal CT, Xray have NOT shown obstruction or ileus. Several laxatives have been attempted without effect. She feels like she needs to have a BM but nothing is coming out. CT did not show a tremendous amount of stool in colon. No masses or lesions seen. Patient refuses DAYA. PMHx: as above. Breast cancer, thyroid problems. PSHx: in 1997, hysterectomy in 2002 with bowel repair. Single oopherectomy FMHx: DM, hypertension, and CAD SocHx: 25+ pack year, occasional etoh. 12pt ROS neg except for above. Past Patient History - Infectious Disease Hx of Infectious Diseases: None - Past Social History Smoking Status: Light Smoker < 10 Cigarettes Daily - CARDIAC Hx Cardiac Disorders: Yes Hx Hypertension: Yes - ENDOCRINE/METABOLIC Hx Diabetes Mellitus Type 2: Yes Hx Hypothyroidism: Yes - HEMATOLOGICAL/ONCOLOGICAL Other/Comment: breast ca - INTEGUMENTARY Hx Dermatological Problems: No - MUSCULOSKELETAL/RHEUMATOLOGICAL Hx Falls: No - PSYCHIATRIC Hx Substance Use: No - SURGICAL HISTORY Hx Surgeries: Yes (bowel resection) - ANESTHESIA Hx Anesthesia: Yes Hx Anesthesia Reactions: No Meds Allergies/Adverse Reactions: Allergies Allergy/AdvReac Type Severity Reaction Status Date / Time acetaminophen [From Percocet] Allergy RASH Verified 11/15/17 14:15 banana Allergy RASH Verified 11/15/17 14:15 oxycodone [From Percocet] Allergy RASH Verified 11/15/17 14:15 tomato Allergy RASH Verified 11/15/17 14:15 - Medications Medications: Current Medications Amlodipine Besylate (Norvasc) 10 mg PO DAILY [facility] Last Admin: 11/16/17 09:27 Dose: 10 mg Atorvastatin Calcium (Lipitor) 10 mg PO DIN [facility] Last Admin: 11/16/17 17:39 Dose: 10 mg Docusate Sodium (Colace) 100 mg PO DAILY [facility] Last Admin: 11/16/17 17:39 Dose: 100 mg Famotidine (Pepcid) 20 mg PO 1000,2200 [facility] Last Admin: 11/16/17 22:04 Dose: 20 mg Hydralazine HCl (Apresoline) 10 mg IVP Q6 PRN PRN Reason: sbp >160 OR dbp > 100 Last Admin: 11/16/17 17:40 Dose: 10 mg Insulin Human Lispro (Humalog Low) 0 units SC ACHS [facility] PRN Reason: Protocol Last Admin: 11/17/17 08:11 Dose: Not Given Ketorolac Tromethamine (Toradol) 15 mg IVP Q6H PRN PRN Reason: Pain, severe (8-10) Last Admin: 11/16/17 01:46 Dose: 15 mg Lisinopril (Zestril) 30 mg PO DAILY [facility] Last Admin: 11/16/17 09:27 Dose: 30 mg Ondansetron HCl (Zofran Inj) 4 mg IVP Q6H PRN PRN Reason: Nausea/Vomiting Last Admin: 11/16/17 18:18 Dose: 4 mg Polyethylene Glycol (Miralax) 17 gm PO DAILY [facility] Last Admin: 11/16/17 17:39 Dose: 17 gm Physical Exam - Constitutional Appears: Non-toxic, No Acute Distress - Eye Exam Eye Exam: Normal appearance - ENT Exam ENT Exam: Mucous Membranes Moist - Respiratory Exam Respiratory Exam: Clear to Auscultation Bilateral, NORMAL BREATHING PATTERN - Cardiovascular Exam Cardiovascular Exam: REGULAR RHYTHM - GI/Abdominal Exam GI & Abdominal Exam: Normal Bowel Sounds, Soft. absent: Distended, Guarding, Organomegaly, Tenderness - Rectal Exam Rectal Exam: Deferred - Neurological Exam Neurological exam: Alert, CN II-XII Intact, Oriented x3 - Psychiatric Exam Psychiatric exam: Normal Affect, Normal Mood - Skin Skin Exam: Dry, Normal Color Results - Vital Signs Recent Vital Signs: Last Vital Signs Temp 98.0 F 11/17/17 06:00 Pulse 72 11/17/17 06:00 Resp 16 11/17/17 06:00 BP 119/64 11/17/17 06:00 Pulse Ox 100 11/17/17 06:00 - Labs Result Diagrams: 11/17/17 06:00 11/17/17 06:00 Labs: Laboratory Results - last 24 hr 11/16/17 11/16/17 11/16/17 11:12 16:35 21:10 WBC RBC Hgb Hct MCV MCH MCHC RDW Plt Count MPV Gran % Lymph % (Auto) Donley % (Auto) Eos % (Auto) Baso % (Auto) Gran # Lymph # (Auto) Donley # (Auto) Eos # (Auto) Baso # (Auto) Sodium Potassium Chloride Carbon Dioxide Anion Gap BUN Creatinine Est GFR ( Amer) Est GFR (Non-Af Amer) POC Glucose (mg/dL) 130 H 122 H 169 H Random Glucose Calcium Phosphorus Magnesium Total Bilirubin AST ALT Alkaline Phosphatase Total Protein Albumin Globulin Albumin/Globulin Ratio 11/17/17 11/17/17 11/17/17 06:00 06:00 07:36 WBC 9.3 RBC 4.75 Hgb 13.9 Hct 42.4 MCV 89.3 MCH 29.3 MCHC 32.8 RDW 14.6 H Plt Count 302 MPV 10.2 Gran % 65.8 Lymph % (Auto) 25.1 Donley % (Auto) 8.2 H Eos % (Auto) 0.8 L Baso % (Auto) 0.1 Gran # 6.13 Lymph # (Auto) 2.3 Donley # (Auto) 0.8 H Eos # (Auto) 0.1 Baso # (Auto) 0.01 Sodium 141 Potassium 4.1 Chloride 103 Carbon Dioxide 27 Anion Gap 15 BUN 8 Creatinine 0.6 L Est GFR ( Amer) > 60 Est GFR (Non-Af Amer) > 60 POC Glucose (mg/dL) 145 H Random Glucose 127 H Calcium 9.5 Phosphorus 4.0 Magnesium 1.9 Total Bilirubin 0.7 AST 20 ALT 21 Alkaline Phosphatase 94 Total Protein 7.6 Albumin 4.4 Globulin 3.2 Albumin/Globulin Ratio 1.4 Assessment & Plan - Assessment and Plan (Free Text) Assessment: 52F with extensive surgical history presenting with n/v and abdominal pain. #Abdominal pain - improved #Intractable nausea/vomiting - improved #Hysterectomy, bowel surgery, oopherectomy, #Thyroid disease #Hx Breast CA PLAN: - Symptoms resolving, okay to advance to 6 small meal diet low fat/fiber with as needed zofran. Avoid large meals. - Recommend control of BS, less than 180. - Recommend follow up of thyroid disease - Outpt bowel regimen of colace and miralax - Recommend colonoscopy as outpt soon. - Okay to discharge patient if tolerating diet and having BM. - We will sign off, please call as needed. - Date & Time Date: 11/17/17 Time: 09:14 <Bao Guan - Last Filed: 11/17/17 12:18> Meds - Medications Medications: Current Medications Amlodipine Besylate (Norvasc) 10 mg PO DAILY [facility] Last Admin: 11/17/17 10:35 Dose: 10 mg Atorvastatin Calcium (Lipitor) 10 mg PO DIN [facility] Last Admin: 11/16/17 17:39 Dose: 10 mg Docusate Sodium (Colace) 100 mg PO DAILY [facility] Last Admin: 11/17/17 10:35 Dose: 100 mg Famotidine (Pepcid) 20 mg PO 1000,2200 [facility] Last Admin: 11/17/17 10:36 Dose: 20 mg Hydralazine HCl (Apresoline) 10 mg IVP Q6 PRN PRN Reason: sbp >160 OR dbp > 100 Last Admin: 11/16/17 17:40 Dose: 10 mg Insulin Human Lispro (Humalog Low) 0 units SC ACHS [facility] PRN Reason: Protocol Last Admin: 11/17/17 08:11 Dose: Not Given Ketorolac Tromethamine (Toradol) 15 mg IVP Q6H PRN PRN Reason: Pain, severe (8-10) Last Admin: 11/16/17 01:46 Dose: 15 mg Lisinopril (Zestril) 30 mg PO DAILY [facility] Last Admin: 11/17/17 10:36 Dose: 30 mg Ondansetron HCl (Zofran Inj) 4 mg IVP Q6H PRN PRN Reason: Nausea/Vomiting Last Admin: 11/16/17 18:18 Dose: 4 mg Polyethylene Glycol (Miralax) 17 gm PO DAILY [facility] Last Admin: 11/17/17 10:35 Dose: 17 gm Results - Vital Signs Recent Vital Signs: Last Vital Signs Temp 98.0 F 11/17/17 06:00 Pulse 76 11/17/17 10:36 Resp 16 11/17/17 06:00 BP 122/68 11/17/17 10:36 Pulse Ox 100 11/17/17 06:00 - Labs Result Diagrams: 11/17/17 06:00 11/17/17 06:00 Labs: Laboratory Results - last 24 hr 11/16/17 11/16/17 11/16/17 11:12 16:35 21:10 WBC RBC Hgb Hct MCV MCH MCHC RDW Plt Count MPV Gran % Lymph % (Auto) Donley % (Auto) Eos % (Auto) Baso % (Auto) Gran # Lymph # (Auto) Donley # (Auto) Eos # (Auto) Baso # (Auto) Sodium Potassium Chloride Carbon Dioxide Anion Gap BUN Creatinine Est GFR ( Amer) Est GFR (Non-Af Amer) POC Glucose (mg/dL) 130 H 122 H 169 H Random Glucose Calcium Phosphorus Magnesium Total Bilirubin AST ALT Alkaline Phosphatase Total Protein Albumin Globulin Albumin/Globulin Ratio 11/17/17 11/17/17 11/17/17 06:00 06:00 07:36 WBC 9.3 RBC 4.75 Hgb 13.9 Hct 42.4 MCV 89.3 MCH 29.3 MCHC 32.8 RDW 14.6 H Plt Count 302 MPV 10.2 Gran % 65.8 Lymph % (Auto) 25.1 Donley % (Auto) 8.2 H Eos % (Auto) 0.8 L Baso % (Auto) 0.1 Gran # 6.13 Lymph # (Auto) 2.3 Donley # (Auto) 0.8 H Eos # (Auto) 0.1 Baso # (Auto) 0.01 Sodium 141 Potassium 4.1 Chloride 103 Carbon Dioxide 27 Anion Gap 15 BUN 8 Creatinine 0.6 L Est GFR ( Amer) > 60 Est GFR (Non-Af Amer) > 60 POC Glucose (mg/dL) 145 H Random Glucose 127 H Calcium 9.5 Phosphorus 4.0 Magnesium 1.9 Total Bilirubin 0.7 AST 20 ALT 21 Alkaline Phosphatase 94 Total Protein 7.6 Albumin 4.4 Globulin 3.2 Albumin/Globulin Ratio 1.4 11/17/17 11:18 WBC RBC Hgb Hct MCV MCH MCHC RDW Plt Count MPV Gran % Lymph % (Auto) Donley % (Auto) Eos % (Auto) Baso % (Auto) Gran # Lymph # (Auto) Donley # (Auto) Eos # (Auto) Baso # (Auto) Sodium Potassium Chloride Carbon Dioxide Anion Gap BUN Creatinine Est GFR ( Amer) Est GFR (Non-Af Amer) POC Glucose (mg/dL) 139 H Random Glucose Calcium Phosphorus Magnesium Total Bilirubin AST ALT Alkaline Phosphatase Total Protein Albumin Globulin Albumin/Globulin Ratio Attending/Attestation - Attestation I have personally seen and examined this patient.: Yes I have fully participated in the care of the patient.: Yes I have reviewed all pertinent clinical information: Yes Notes (Text): 11/17/17 12:15 Patient seen and examined at bedside this am on GI rounds. This is a 52 yr old F with extensive surgical history presenting with n/v and abdominal pain which has resolved now. CT scan unremarkable and moving her bowels. Start diet as tolerated and can follow with GI for outpatient colonoscopy. She also had hypertensive urgency on presentation that may have exacerbated nausea/ vomiting. Can be discharged on stool softeners. Discussed with the PMD. Will sign off now. Thank you for letting us participate in the care of your patient
[2017-11-17] MEDS: POLYETHYLENE GLYCOL 3350 17 GM/Dose PACKET PO SCH (10:35)
[2017-11-17 12:29] VITALS: BP 151/89; PULSE 65; RESP 20; TEMP 98.1
--- NOTE | 2017-11-17 15:45 | CP.PCM.DIS ---
Provider - Provider Date of Admission: 11/16/17 10:03 Attending physician: Qing Keith DO Primary care physician: Dr. Irina Milelr Consults: GI ([facility]) Time Spent in preparation of Discharge (in minutes): 45 Diagnosis - Discharge Diagnosis (1) Food poisoning Status: Acute Priority: High (2) Hypertensive urgency Status: Acute Priority: High (3) Low TSH level Status: Chronic Priority: Low Hospital Course - Lab Results Lab Results: Most Recent Lab Values WBC 9.3 10^3/ul (4.5-11.0) 11/17/17 06:00 RBC 4.75 10^6/uL (3.5-6.1) 11/17/17 06:00 Hgb 13.9 g/dL (12.0-16.0) 11/17/17 06:00 Hct 42.4 % (36.0-48.0) 11/17/17 06:00 MCV 89.3 fl (80.0-105.0) 11/17/17 06:00 MCH 29.3 pg (25.0-35.0) 11/17/17 06:00 MCHC 32.8 g/dl (31.0-37.0) 11/17/17 06:00 RDW 14.6 % (11.5-14.5) H 11/17/17 06:00 Plt Count 302 10^3/uL (120.0-450.0) 11/17/17 06:00 MPV 10.2 fl (7.0-11.0) 11/17/17 06:00 Gran % 65.8 % (50.0-68.0) 11/17/17 06:00 Lymph % (Auto) 25.1 % (22.0-35.0) 11/17/17 06:00 Slope % (Auto) 8.2 % (1.0-6.0) H 11/17/17 06:00 Eos % (Auto) 0.8 % (1.5-5.0) L 11/17/17 06:00 Baso % (Auto) 0.1 % (0.0-3.0) 11/17/17 06:00 Gran # 6.13 (1.4-6.5) 11/17/17 06:00 Lymph # (Auto) 2.3 (1.2-3.4) 11/17/17 06:00 Slope # (Auto) 0.8 (0.1-0.6) H 11/17/17 06:00 Eos # (Auto) 0.1 (0.0-0.7) 11/17/17 06:00 Baso # (Auto) 0.01 K/mm3 (0.0-2.0) 11/17/17 06:00 PT 11.5 SECONDS (9.4-12.5) 11/15/17 15:14 INR 1.01 11/15/17 15:14 APTT 35.3 Seconds (25.1-36.5) 11/15/17 15:14 Sodium 141 mmol/L (132-148) 11/17/17 06:00 Potassium 4.1 mmol/L (3.6-5.0) 11/17/17 06:00 Chloride 103 mmol/L (98-107) 11/17/17 06:00 Carbon Dioxide 27 mmol/L (21-33) 11/17/17 06:00 Anion Gap 15 (10-20) 11/17/17 06:00 BUN 8 mg/dL (7-21) 11/17/17 06:00 Creatinine 0.6 mg/dl (0.7-1.2) L 11/17/17 06:00 Est GFR ( Amer) > 60 11/17/17 06:00 Est GFR (Non-Af Amer) > 60 11/17/17 06:00 POC Glucose (mg/dL) 139 mg/dL (65-110) H 11/17/17 11:18 Random Glucose 127 mg/dL (70-110) H 11/17/17 06:00 Hemoglobin A1c 7.9 % (4.2-6.5) H 11/15/17 16:00 Calcium 9.5 mg/dL (8.4-10.5) 11/17/17 06:00 Phosphorus 4.0 mg/dL (2.5-4.5) 11/17/17 06:00 Magnesium 1.9 mg/dL (1.7-2.2) 11/17/17 06:00 Total Bilirubin 0.7 mg/dL (0.2-1.3) 11/17/17 06:00 AST 20 U/L (14-36) 11/17/17 06:00 ALT 21 U/L (7-56) 11/17/17 06:00 Alkaline Phosphatase 94 U/L (38-126) 11/17/17 06:00 Lactate Dehydrogenase 505 U/L (333-699) 11/15/17 15:49 Total Creatine Kinase 128 U/L (35-230) 11/15/17 15:49 Troponin I < 0.01 ng/mL 11/15/17 15:49 Total Protein 7.6 g/dL (5.8-8.3) 11/17/17 06:00 Albumin 4.4 g/dL (3.0-4.8) 11/17/17 06:00 Globulin 3.2 gm/dL 11/17/17 06:00 Albumin/Globulin Ratio 1.4 (1.1-1.8) 11/17/17 06:00 Triglycerides 186 mg/dL (35-160) H 11/15/17 16:00 Cholesterol 257 mg/dL (130-200) H 11/15/17 16:00 LDL Cholesterol Direct 162 mg/dL (0-129) H 11/15/17 16:00 HDL Cholesterol 49 mg/dL (29-60) 11/15/17 16:00 Amylase 103 U/L (35-125) 11/15/17 15:49 Lipase 100 U/L (23-300) 11/15/17 15:49 Free T4 0.96 ng/dL (0.78-2.19) 11/15/17 16:00 TSH 3rd Generation < 0.02 mIU/mL (0.46-4.68) L 11/15/17 16:00 Urine Color Yellow (YELLOW) 11/15/17 15:54 Urine Appearance Clear (CLEAR) 11/15/17 15:54 Urine pH 6.0 (4.7-8.0) 11/15/17 15:54 Ur Specific [place] 1.010 (1.005-1.035) 11/15/17 15:54 Urine Protein Negative mg/dL (<30 mg/dL) 11/15/17 15:54 Urine Glucose (UA) Negative mg/dL (NEGATIVE) 11/15/17 15:54 Urine Ketones Negative mg/dL (NEGATIVE) 11/15/17 15:54 Urine Blood Negative (NEGATIVE) 11/15/17 15:54 Urine Nitrate Negative (NEGATIVE) 11/15/17 15:54 Urine Bilirubin Negative (NEGATIVE) 11/15/17 15:54 Urine Urobilinogen 0.2 E.U./dL (<1 E.U./dL) 11/15/17 15:54 Ur Leukocyte Esterase Negative [place]/uL (NEGATIVE) 11/15/17 15:54 - Hospital Course Hospital Course: 52 year old female with a past medical history of hypertension, DM II, bowel resection in 2002, breast cancer treated with lumpectomy and radiation, who presents with one day of upper abdominal pain, nausea, and vomiting after eating a [place] meal yesterday for lunch. The meal included ox tails and rice. No one else in the group got sick bedsides her. She reports initially feeling funny at around 5 pm yesterday, then vomiting starting at 01:00 AM today for a total of 7 times in the interim. She scales the pain as 7/10 in severity, described as contraction like with associated bloating sensation. She reports inability to tolerate solid foods, but able to drink liquids. She reports being constipated since Sunday. She also denies passing flatus. She denies any headache, visual changes, fever, chills, chest pain, dysuria, diarrhea, recent sick contacts, or travel. Otherwise, 12 point review of system in negative. In the ED she was given 1/2 L of fluid, zofran, morphine, toradol , protonix, and Vasotec (for elevated blood pressure). At the time of my examination she reports her abdominal pain has subsided to a 3/10 in severity, but reports still feeling nausea. During hospitalization, patient was initially not able to tolerate PO intake. She also had abdominal pain and could not have a BM. CT A/P and abdominal XR did not show any acute abnormalities. Patient was gradually able to advance her diet. She had 2 BMs after receiving Miralax and Colace. Patient was given several medications for her HTN. She was seen by GI who want patient to follow with GI for outpatient colonoscopy and discharge on stool softeners. Upon discharge, patient was tolerating a regular bland diet. She was having bowel movements. She denies nausea and vomiting. Her BP was controlled. Discharge Exam - Head Exam Head Exam: ATRAUMATIC, NORMAL INSPECTION, NORMOCEPHALIC - Eye Exam Eye Exam: EOMI, Normal appearance - ENT Exam ENT Exam: Mucous Membranes Moist, Normal Exam - Neck Exam Neck exam: Normal Inspection - Respiratory Exam Respiratory Exam: Clear to PA & Lateral, NORMAL BREATHING PATTERN, UNREMARKABLE - Cardiovascular Exam Cardiovascular Exam: REGULAR RHYTHM, +S1, +S2 - GI/Abdominal Exam GI & Abdominal Exam: Normal Bowel Sounds, Soft, Unremarkable. absent: Tenderness - Rectal Exam Rectal Exam: Deferred - Extremities Exam Extremities exam: normal inspection, pedal pulses present - Back Exam Back exam: NORMAL INSPECTION - Neurological Exam Neurological exam: Alert, CN II-XII Intact, Oriented x3 - Psychiatric Exam Psychiatric exam: Normal Affect, Normal Mood - Skin Skin Exam: Dry, Normal Color, Warm Discharge Plan - Discharge Medications Prescriptions: Polyethylene Glycol 3350 [Miralax] 17 gm PO DAILY PRN #14 ml PRN Reason: Constipation - Follow Up Plan Condition: IMPROVED Disposition: HOME/ ROUTINE Patient education suggested?: Yes Instructions: High Blood Pressure in Adults, Constipation, Adult (DC), Acute Abdomen (Belly Pain), Adult (DC) Additional Instructions: You are being discharged from [facility]. Please resume your home medications. Additionally, you will be given a prescription for Miralax, which you can take daily as needed for constipation. This is an [id number] medication that you can purchase as well. Follow-up with your primary care physician within 3-5 days of discharge. You will need repeat blood work for your thyroid numbers. Also, please follow-up with irrigationist designer within 1-2 weeks, you will need a colonoscopy. If symptoms return, please present to the nearest emergency department. Referrals: Irina Miller [Family Provider] - Bao Guan MD [Medical Doctor] -
== END 2017-11-17 15:24 | disposition home or self-care (01) ==
LOC: ED 13:45 → ERH 16:55 → 2RNO 20:09 → OBSVTOIN 11-16 10:03 → INTOOBSV 11-16 10:03
PROVIDERS: ADMIT Hospitalist; ATTEND Hospitalist
DX: I16.0 Hypertensive urgency (principal); T62.91XA Toxic effect of unspecified noxious substance eaten as food, accidental (unintentional), initial encounter; A08.4 Viral intestinal infection, unspecified; E03.9 Hypothyroidism, unspecified; E11.9 Type 2 diabetes mellitus without complications; I10 Essential (primary) hypertension; K59.00 Constipation, unspecified; Z72.0 Tobacco use; Z85.3 Personal history of malignant neoplasm of breast; Z90.49 Acquired absence of other specified parts of digestive tract; Z90.710 Acquired absence of both cervix and uterus; Z90.721 Acquired absence of ovaries, unilateral; Z83.3 Family history of diabetes mellitus; Z82.49 Family history of ischemic heart disease and other diseases of the circulatory system; E78.5 Hyperlipidemia, unspecified; E07.9 Disorder of thyroid, unspecified; Z92.3 Personal history of irradiation; Z88.6 Allergy status to analgesic agent; Z88.5 Allergy status to narcotic agent; Z91.018 Allergy to other foods
CPT/HCPCS: 36415; 71045; 74019; 74176; 80053; 80061; 81003; 82150; 82550; 82948; 83036; 83615; 83690; 83735; 84100; 84439; 84443; 84484; 85025; 85610; 85730; 93005; 96361; 96374; 96375; 96376; 99285; C9113; G0378; J0360; J1885; J2270; J2405; J7040